=== PATIENT | male | born 1955 | race Caucasian/White ===

== ENCOUNTER 2025-01-08 11:13 | Inpatient (IN) | payer MEDICARE ==
[2025-01-08 12:42] LABS: ALT (SGPT) 32 U/L (Less than 45); AST (SGOT) 49 U/L (11-34); Albumin 4.5 g/dL (3.1-4.5); Alkaline Phosphatase 60 U/L (40-110); Anion Gap 15 mmol/L (10-20); BUN (Urea Nitrogen) 14 mg/dL (8.4-25.7); Bilirubin, Total 0.4 mg/dL (0.3-1.2); Calc. Creatinine Clearance 0 mL/min (70-130); Calcium 9.5 mg/dL (7.8-10.44); Carbon Dioxide 19 mmol/L (23-31); Chloride 108 mmol/L (98-107); Globulin 2.7 g/dL (2.4-3.5); Glucose 122 mg/dL (83-110); Potassium 4.5 mmol/L (3.5-5.1); Sodium 137 mmol/L (136-145)
[2025-01-08] MEDS ORDERED: Acetaminophen 500 MG TAB ONE (12:42)
[2025-01-08 13:00] LABS: #Basophils 0.05 10x3/uL (0.0-0.2); #Eosinophils 0.21 10x3/uL (0.0-0.7); #Monocytes 0.81 10x3/uL (0.11-0.59); #Neutrophils 6.10 10x3/uL (1.40-6.50); %Basophils 0.6 % (0.0-1.0); %Eosinophils 2.5 % (0.0-10.0); %Lymphocytes 15.2 % (21.0-51.0); %Monocytes 9.6 % (0.0-10.0); %Neutrophils 72.0 % (42.0-75.0); Hematocrit 45.8 % (42.0-52.0); Hemoglobin 15.3 g/dL (14.0-18.0); Mean Corpuscular Hemoglobin 31.2 pg (27.0-31.0); Mean Corpuscular Volume 93.3 fL (78.0-98.0); Platelet Count 187 10x3/uL (130-400); Red Blood Cell (RBC) Count 4.91 mill/uL (4.70-6.10); White Blood Cell (WBC) Count 8.47 10x3/uL (4.8-10.8)
[2025-01-08 15:50] VITALS: BMI 23.3
[2025-01-08] MEDS: Mupirocin 1 GM TUBE TP SCH (20:52)
[2025-01-09 03:52] LABS: #Basophils Less than 0.03 10x3/uL (0.0-0.2); #Eosinophils 0.15 10x3/uL (0.0-0.7); #Monocytes 0.70 10x3/uL (0.11-0.59); #Neutrophils 4.10 10x3/uL (1.40-6.50); %Basophils 0.3 % (0.0-1.0); %Eosinophils 2.3 % (0.0-10.0); %Lymphocytes 23.9 % (21.0-51.0); %Monocytes 10.7 % (0.0-10.0); %Neutrophils 62.6 % (42.0-75.0); Hematocrit 44.4 % (42.0-52.0); Hemoglobin 14.7 g/dL (14.0-18.0); Mean Corpuscular Hemoglobin 31.2 pg (27.0-31.0); Mean Corpuscular Volume 94.3 fL (78.0-98.0); Platelet Count 240 10x3/uL (130-400); Red Blood Cell (RBC) Count 4.71 mill/uL (4.70-6.10); White Blood Cell (WBC) Count 6.54 10x3/uL (4.8-10.8)
[2025-01-09 04:13] LABS: Anion Gap 11 mmol/L (10-20); BUN (Urea Nitrogen) 10 mg/dL (8.4-25.7); Calc. Creatinine Clearance 90 mL/min (70-130); Calcium 8.9 mg/dL (7.8-10.44); Carbon Dioxide 26 mmol/L (23-31); Chloride 109 mmol/L (98-107); Glucose 84 mg/dL (83-110); Potassium 4.2 mmol/L (3.5-5.1); Sodium 142 mmol/L (136-145)
[2025-01-09] MEDS ORDERED: Iopamidol 370 76% 100 ML VIAL ONE (09:26)
[2025-01-09] MEDS ORDERED: Adenosine 6 mg (2 mL) VIAL ONE (11:29)
[2025-01-09] MEDS ORDERED: EPINEPHrine 1 MG/10 ML Abboject SYRINGE ONE (11:30)
[2025-01-09] MEDS ORDERED: PHENYLEPHRINE-NS 100 MCG/ML 10 ML SYRINGE ONE (11:30)
[2025-01-09] MEDS ORDERED: Heparin 10,000 UNITS/ 10 ML VIAL ONE (11:30)
[2025-01-09] MEDS ORDERED: Nitroglycerin 50 MG/250 ML BOT 250 ML ONE (11:30)
[2025-01-09] MEDS ORDERED: Lidocaine 1% (PF) 30 ML VIAL ONE (11:39)
[2025-01-09] MEDS ORDERED: Nitroglycerin 0.4 MG TAB (25 Tab Bottle) SL PRN (14:11)
[2025-01-09] MEDS: Acetaminophen 325 MG TAB PO PRN (14:35)
[2025-01-09] MEDS: Ondansetron PF 4 MG/2 ML Vial IVP PRN (14:35)
[2025-01-09] MEDS ORDERED: Acetaminophen/Codeine 30-300mg Tablet PO PRN (15:29)
[2025-01-09] MEDS: Ondansetron PF 4 MG/2 ML Vial IVP SCH (22:19)
[2025-01-10 05:27] LABS: #Basophils 0.03 10x3/uL (0.0-0.2); #Eosinophils 0.09 10x3/uL (0.0-0.7); #Monocytes 0.91 10x3/uL (0.11-0.59); #Neutrophils 6.60 10x3/uL (1.40-6.50); %Basophils 0.3 % (0.0-1.0); %Eosinophils 1.0 % (0.0-10.0); %Lymphocytes 13.4 % (21.0-51.0); %Monocytes 10.3 % (0.0-10.0); %Neutrophils 74.7 % (42.0-75.0); Hematocrit 42.4 % (42.0-52.0); Hemoglobin 14.4 g/dL (14.0-18.0); Mean Corpuscular Hemoglobin 31.5 pg (27.0-31.0); Mean Corpuscular Volume 92.8 fL (78.0-98.0); Platelet Count 252 10x3/uL (130-400); Red Blood Cell (RBC) Count 4.57 mill/uL (4.70-6.10); White Blood Cell (WBC) Count 8.85 10x3/uL (4.8-10.8)
[2025-01-10 05:51] LABS: ALT (SGPT) 21 U/L (Less than 45); AST (SGOT) 24 U/L (11-34); Albumin 3.8 g/dL (3.1-4.5); Alkaline Phosphatase 55 U/L (40-110); Anion Gap 10 mmol/L (10-20); BUN (Urea Nitrogen) 7 mg/dL (8.4-25.7); Bilirubin, Total 0.5 mg/dL (0.3-1.2); Calc. Creatinine Clearance 111 mL/min (70-130); Calcium 8.7 mg/dL (7.8-10.44); Carbon Dioxide 26 mmol/L (23-31); Chloride 110 mmol/L (98-107); Globulin 2.1 g/dL (2.4-3.5); Glucose 91 mg/dL (83-110); Potassium 3.7 mmol/L (3.5-5.1); Sodium 142 mmol/L (136-145)
[2025-01-10] MEDS ORDERED: Lidocaine 1% (PF) 30 ML VIAL ONE (16:00)
[2025-01-10] MEDS ORDERED: Heparin 10,000 UNITS/ 10 ML VIAL ONE (16:00)
[2025-01-10] MEDS ORDERED: CEFAZOLIN 2 GM VIAL ONE (16:00)
[2025-01-10] MEDS ORDERED: Ondansetron PF 4 MG/2 ML Vial ONE (16:44)
[2025-01-10] MEDS ORDERED: Lidocaine 1% PF 5 ML VIAL ONE (16:51)
[2025-01-11] MEDS: Transdermal Patch Removal TOP SCH (01:47)
[2025-01-11 04:04] LABS: #Basophils 0.06 10x3/uL (0.0-0.2); #Eosinophils 0.28 10x3/uL (0.0-0.7); #Monocytes 1.07 10x3/uL (0.11-0.59); #Neutrophils 3.80 10x3/uL (1.40-6.50); %Basophils 0.8 % (0.0-1.0); %Eosinophils 3.9 % (0.0-10.0); %Lymphocytes 27.5 % (21.0-51.0); %Monocytes 14.8 % (0.0-10.0); %Neutrophils 52.7 % (42.0-75.0); Hematocrit 39.9 % (42.0-52.0); Hemoglobin 13.3 g/dL (14.0-18.0); Mean Corpuscular Hemoglobin 31.1 pg (27.0-31.0); Mean Corpuscular Volume 93.4 fL (78.0-98.0); Platelet Count 216 10x3/uL (130-400); Red Blood Cell (RBC) Count 4.27 mill/uL (4.70-6.10); White Blood Cell (WBC) Count 7.21 10x3/uL (4.8-10.8)
[2025-01-11 04:24] LABS: ALT (SGPT) 19 U/L (Less than 45); AST (SGOT) 21 U/L (11-34); Albumin 3.6 g/dL (3.1-4.5); Alkaline Phosphatase 53 U/L (40-110); Anion Gap 15 mmol/L (10-20); BUN (Urea Nitrogen) 12 mg/dL (8.4-25.7); Bilirubin, Total 0.4 mg/dL (0.3-1.2); Calc. Creatinine Clearance 82 mL/min (70-130); Calcium 8.7 mg/dL (7.8-10.44); Carbon Dioxide 25 mmol/L (23-31); Chloride 107 mmol/L (98-107); Globulin 2.0 g/dL (2.4-3.5); Glucose 86 mg/dL (83-110); Potassium 3.7 mmol/L (3.5-5.1); Sodium 143 mmol/L (136-145)
[2025-01-11] MEDS ORDERED: Lidocaine 1% (PF) 30 ML VIAL ONE (10:15)
[2025-01-11] MEDS ORDERED: Heparin 10,000 UNITS/ 10 ML VIAL ONE ×2 (10:15→12:42)
[2025-01-11] MEDS ORDERED: CEFAZOLIN 2 GM VIAL ONE (10:15)
[2025-01-11] MEDS ORDERED: Rocuronium Bromide 10 MG/ML (10ML VIAL) ONE (10:55)
[2025-01-11] MEDS ORDERED: Ondansetron PF 4 MG/2 ML Vial ONE (10:55)
[2025-01-11] MEDS ORDERED: PHENYLEPHRINE-NS 100 MCG/ML 10 ML SYRINGE ONE (10:56)
[2025-01-11] MEDS ORDERED: Iopamidol 370 76% 100 ML VIAL ONE (12:00)
[2025-01-11] MEDS ORDERED: PROPOFOL 200 MG/20 ML VIAL ONE (12:45)
[2025-01-11] MEDS ORDERED: Glycopyrrolate 0.2 MG/ML 5 ML SYRINGE ONE (12:45)
[2025-01-12 11:51] VITALS: TEMP 97.6
[2025-01-12 15:23] VITALS: BP 139/77
== END 2025-01-12 18:35 | disposition home or self-care (01) | DRG 229 ==
LOC: ERS 11:13 → ERHOLD 14:16 → CCU 15:14 → 2NO 01-10 20:14
PROVIDERS: ADMIT Internal Medicine; ATTEND Family Medicine
PROC: B2151ZZ Fluoroscopy of Left Heart using Low Osmolar Contrast (ICD-10-PCS; 2025-01-10)
PROC: B2101ZZ Fluoroscopy of Single Coronary Artery using Low Osmolar Contrast (ICD-10-PCS; 2025-01-10)
PROC: 4A023N7 Measurement of Cardiac Sampling and Pressure, Left Heart, Percutaneous Approach (ICD-10-PCS; 2025-01-10)
PROC: 3E03329 Introduction of Other Anti-infective into Peripheral Vein, Percutaneous Approach (ICD-10-PCS; 2025-01-10)
PROC: 3E033XZ Introduction of Vasopressor into Peripheral Vein, Percutaneous Approach (ICD-10-PCS; 2025-01-10)
PROC: 02HK3NZ Insertion of Intracardiac Pacemaker into Right Ventricle, Percutaneous Approach (ICD-10-PCS; principal; 2025-01-12)
DX: R00.1 Bradycardia, unspecified (principal); Z00.6 Encounter for examination for normal comparison and control in clinical research program; I48.91 Unspecified atrial fibrillation; N40.0 Benign prostatic hyperplasia without lower urinary tract symptoms; I25.10 Atherosclerotic heart disease of native coronary artery without angina pectoris; I49.3 Ventricular premature depolarization; Z88.5 Allergy status to narcotic agent; Z82.49 Family history of ischemic heart disease and other diseases of the circulatory system; R51.9 Headache, unspecified; R29.700 NIHSS score 0; Z95.0 Presence of cardiac pacemaker
CPT/HCPCS: 33274; 36415; 36416; 70450; 70496; 70498; 71045; 80048; 80053; 84484; 85025; 93005; 93306; 93458; 96365; 99152; 99153; C1760; C1769; C1786; C1887; C1894; J0153; J0165; J0461; J1100; J1265; J1644; J2003; J2250; J2405; J2550; J2704; J2765; J3010; J7030; Q9967

== ENCOUNTER 2025-01-12 20:48 | Emergency (ER) | payer MEDICARE ==
[2025-01-12 21:31] LABS: #Basophils 0.03 10x3/uL (0.0-0.2); #Eosinophils 0.18 10x3/uL (0.0-0.7); #Monocytes 0.77 10x3/uL (0.11-0.59); #Neutrophils 4.94 10x3/uL (1.40-6.50); %Basophils 0.4 % (0.0-1.0); %Eosinophils 2.3 % (0.0-10.0); %Lymphocytes 24.1 % (21.0-51.0); %Monocytes 9.9 % (0.0-10.0); %Neutrophils 63.2 % (42.0-75.0); Hematocrit 40.0 % (42.0-52.0); Hemoglobin 13.7 g/dL (14.0-18.0); Mean Corpuscular Hemoglobin 31.6 pg (27.0-31.0); Mean Corpuscular Volume 92.2 fL (78.0-98.0); Platelet Count 221 10x3/uL (130-400); Red Blood Cell (RBC) Count 4.34 mill/uL (4.70-6.10); White Blood Cell (WBC) Count 7.81 10x3/uL (4.8-10.8)
[2025-01-12] MEDS ORDERED: Metoclopramide HCl 10 MG (2 mL) VIAL ONE (21:38)
[2025-01-12 21:42] LABS: ALT (SGPT) 19 U/L (Less than 45); AST (SGOT) 26 U/L (11-34); Albumin 4.1 g/dL (3.1-4.5); Alkaline Phosphatase 56 U/L (40-110); Anion Gap 17 mmol/L (10-20); BUN (Urea Nitrogen) 15 mg/dL (8.4-25.7); Bilirubin, Total 0.3 mg/dL (0.3-1.2); Calc. Creatinine Clearance 0 mL/min (70-130); Calcium 9.1 mg/dL (7.8-10.44); Carbon Dioxide 25 mmol/L (23-31); Chloride 105 mmol/L (98-107); Globulin 2.3 g/dL (2.4-3.5); Glucose 109 mg/dL (83-110); Potassium 3.9 mmol/L (3.5-5.1); Sodium 143 mmol/L (136-145)
== END 2025-01-13 01:05 | disposition home or self-care (01) ==
LOC: ERS 20:48
DX: R51.9 Headache, unspecified (principal); R29.700 NIHSS score 0; Z95.0 Presence of cardiac pacemaker
CPT/HCPCS: 70496; 70498; 71045; 80053; 84484; 85025; J2765

== ENCOUNTER 2025-01-25 18:00 | Emergency (ER) | payer MEDICARE ==
[~2025-01-25 18:00] MED LIST: Iopamidol-370 76% 500 ML MDV (1 ML CHARGE) ONE
[2025-01-25 18:53] LABS: #Basophils 0.06 10x3/uL (0.0-0.2); #Eosinophils 0.24 10x3/uL (0.0-0.7); #Monocytes 0.65 10x3/uL (0.11-0.59); #Neutrophils 4.16 10x3/uL (1.40-6.50); %Basophils 0.9 % (0.0-1.0); %Eosinophils 3.6 % (0.0-10.0); %Lymphocytes 24.1 % (21.0-51.0); %Monocytes 9.6 % (0.0-10.0); %Neutrophils 61.7 % (42.0-75.0); Hematocrit 39.9 % (42.0-52.0); Hemoglobin 13.6 g/dL (14.0-18.0); Mean Corpuscular Hemoglobin 31.6 pg (27.0-31.0); Mean Corpuscular Volume 92.6 fL (78.0-98.0); Platelet Count 195 10x3/uL (130-400); Red Blood Cell (RBC) Count 4.31 mill/uL (4.70-6.10); White Blood Cell (WBC) Count 6.75 10x3/uL (4.8-10.8)
[2025-01-25] MEDS ORDERED: Ondansetron PF 4 MG/2 ML Vial ONE (19:04)
[2025-01-25 19:31] LABS: ALT (SGPT) 25 U/L (Less than 45); AST (SGOT) 48 U/L (11-34); Albumin 3.9 g/dL (3.1-4.5); Alkaline Phosphatase 53 U/L (40-110); Anion Gap 16 mmol/L (10-20); BUN (Urea Nitrogen) 14 mg/dL (8.4-25.7); Bilirubin, Total 0.3 mg/dL (0.3-1.2); Calc. Creatinine Clearance 0 mL/min (70-130); Calcium 8.6 mg/dL (7.8-10.44); Carbon Dioxide 19 mmol/L (23-31); Chloride 103 mmol/L (98-107); Globulin 2.4 g/dL (2.4-3.5); Glucose 119 mg/dL (83-110); Potassium 4.5 mmol/L (3.5-5.1); Sodium 133 mmol/L (136-145)
[2025-01-25] MEDS ORDERED: Metoclopramide HCl 10 MG (2 mL) VIAL ONE (19:53)
[2025-01-25] MEDS ORDERED: diphenhydrAMINE 50 MG/ML VIAL ONE (19:53)
[2025-01-25] MEDS ORDERED: Tenecteplase 50 MG ONE (20:28)
== END 2025-01-25 21:27 | disposition short-term general hospital (02) ==
LOC: ERS 18:00
DX: I66.3 Occlusion and stenosis of cerebellar arteries (principal); G45.0 Vertebro-basilar artery syndrome; R29.702 NIHSS score 2
CPT/HCPCS: 70450; 70496; 70498; 71045; 71275; 74174; 80053; 82962; 84484; 85025; 93005; J1200; J2270; J2405; J2765; 36416; 37195; 96365; 96375

== ENCOUNTER 2025-01-30 14:09 | Inpatient (IN) | payer MEDICARE ==
[2025-01-30 14:42] LABS: #Basophils 0.06 10x3/uL (0.0-0.2); #Eosinophils 0.12 10x3/uL (0.0-0.7); #Monocytes 0.49 10x3/uL (0.11-0.59); #Neutrophils 8.13 10x3/uL (1.40-6.50); %Basophils 0.6 % (0.0-1.0); %Eosinophils 1.2 % (0.0-10.0); %Lymphocytes 9.2 % (21.0-51.0); %Monocytes 5.0 % (0.0-10.0); %Neutrophils 83.6 % (42.0-75.0); Hematocrit 44.8 % (42.0-52.0); Hemoglobin 15.2 g/dL (14.0-18.0); Mean Corpuscular Hemoglobin 31.4 pg (27.0-31.0); Mean Corpuscular Volume 92.6 fL (78.0-98.0); Platelet Count 207 10x3/uL (130-400); Red Blood Cell (RBC) Count 4.84 mill/uL (4.70-6.10); White Blood Cell (WBC) Count 9.74 10x3/uL (4.8-10.8)
[2025-01-30 14:53] LABS: ALT (SGPT) 21 U/L (Less than 45); AST (SGOT) 25 U/L (11-34); Albumin 4.3 g/dL (3.1-4.5); Alkaline Phosphatase 71 U/L (40-110); Anion Gap 15 mmol/L (10-20); BUN (Urea Nitrogen) 13 mg/dL (8.4-25.7); Bilirubin, Total 0.4 mg/dL (0.3-1.2); Calc. Creatinine Clearance 0 mL/min (70-130); Calcium 9.5 mg/dL (7.8-10.44); Carbon Dioxide 24 mmol/L (23-31); Chloride 102 mmol/L (98-107); Globulin 2.6 g/dL (2.4-3.5); Glucose 204 mg/dL (83-110); Potassium 3.7 mmol/L (3.5-5.1); Sodium 137 mmol/L (136-145)
[2025-01-30] MEDS ORDERED: diphenhydrAMINE 50 MG/ML VIAL ONE (14:53)
[2025-01-30] MEDS ORDERED: Acetaminophen 500 MG TAB ONE (14:53)
[2025-01-30] MEDS ORDERED: Metoclopramide HCl 10 MG (2 mL) VIAL ONE (14:53)
[2025-01-30 22:14] VITALS: BMI 23.8
[2025-01-30] MEDS ORDERED: hydrALAZINE 20 MG/ML VIAL SLOW IVP PRN (22:50)
[2025-01-30] MEDS ORDERED: Bisacodyl 10 MG SUPP PR PRN (22:52)
[2025-01-30] MEDS ORDERED: Ondansetron PF 4 MG/2 ML Vial IVP PRN (22:52)
[2025-01-30] MEDS ORDERED: Guaifenesin DM 100-10/5 ML UDCUP PO PRN (22:52)
[2025-01-30] MEDS ORDERED: Melatonin 3 MG TAB PO PRN (22:52)
[2025-01-30] MEDS ORDERED: Senokot S 8.6-50 MG TAB PO PRN (22:52)
[2025-01-30] MEDS ORDERED: Acetaminophen 325 MG TAB PO PRN (22:52)
[2025-01-30] MEDS ORDERED: Electrolyte Replacement Protocol 1 EACH FS SCH (23:00)
[2025-01-30] MEDS ORDERED: Magnesium 2 GM/50 ML(in water) 2 GM in Premix 1 BAG IVPB PRN (23:30)
[2025-01-30] MEDS ORDERED: Potassium Chloride 20 MEQ in Premix 1 BAG IVPB PRN (23:30)
[2025-01-30] MEDS ORDERED: PHOS-NAK 1 PKT PACK PO PRN (23:30)
[2025-01-31 04:35] LABS: #Basophils 0.04 10x3/uL (0.0-0.2); #Eosinophils 0.27 10x3/uL (0.0-0.7); #Monocytes 0.94 10x3/uL (0.11-0.59); #Neutrophils 4.78 10x3/uL (1.40-6.50); %Basophils 0.5 % (0.0-1.0); %Eosinophils 3.5 % (0.0-10.0); %Lymphocytes 21.7 % (21.0-51.0); %Monocytes 12.2 % (0.0-10.0); %Neutrophils 62.0 % (42.0-75.0); Hematocrit 40.6 % (42.0-52.0); Hemoglobin 13.9 g/dL (14.0-18.0); Mean Corpuscular Hemoglobin 31.5 pg (27.0-31.0); Mean Corpuscular Volume 92.1 fL (78.0-98.0); Platelet Count 203 10x3/uL (130-400); Red Blood Cell (RBC) Count 4.41 mill/uL (4.70-6.10); White Blood Cell (WBC) Count 7.71 10x3/uL (4.8-10.8)
[2025-01-31 04:38] LABS: Anion Gap 15 mmol/L (10-20); BUN (Urea Nitrogen) 14 mg/dL (8.4-25.7); Calc. Creatinine Clearance 88 mL/min (70-130); Calcium 9.0 mg/dL (7.8-10.44); Carbon Dioxide 24 mmol/L (23-31); Cardiac Risk 2.8 (Less than 4.5); Chloride 109 mmol/L (98-107); Cholesterol 94 mg/dl (< 200 Desired); Glucose 106 mg/dL (83-110); HDL Cholesterol 33 mg/dL (>60 Neg Risk); LDL Cholesterol, Calculated 46 mg/dL; Potassium 3.6 mmol/L (3.5-5.1); Sodium 144 mmol/L (136-145); Triglycerides 74 mg/dL (Less than 150)
[2025-01-31] MEDS: Enoxaparin 40 MG (0.4 mL) SYRINGE SC SCH (08:43)
[2025-01-31] MEDS: Aspirin 81 mg Enteric Coated Tablet PO SCH (08:43)
[2025-02-01 11:12] VITALS: BP 132/81; TEMP 97.5
[2025-02-01] MEDS ORDERED: Rosuvastatin 20 MG TAB PO SCH (21:00)
== END 2025-02-01 16:57 | disposition home or self-care (01) | DRG 103 ==
LOC: ERS 14:09 → OBS 20:11 → OBSVTOIN 01-31 13:11
PROVIDERS: ADMIT Internal Medicine; ATTEND Family Medicine
DX: R51.9 Headache, unspecified (principal); I25.10 Atherosclerotic heart disease of native coronary artery without angina pectoris; I49.5 Sick sinus syndrome; Z86.73 Personal history of transient ischemic attack (TIA), and cerebral infarction without residual deficits; Z95.0 Presence of cardiac pacemaker; Z88.5 Allergy status to narcotic agent; Z88.8 Allergy status to other drugs, medicaments and biological substances; Z98.890 Other specified postprocedural states; Z79.899 Other long term (current) drug therapy
CPT/HCPCS: 36415; 70450; 70496; 70498; 71045; 80048; 80053; 80061; 83036; 84484; 85025; 86141; 93005; 94760; 96365; 96372; 96375; G0378; J1200; J1650; J2765

== ENCOUNTER 2025-02-15 15:17 | Observation (INO) | payer MEDICARE ==
[2025-02-15 16:22] LABS: #Basophils 0.03 10x3/uL (0.0-0.2); #Eosinophils 0.26 10x3/uL (0.0-0.7); #Monocytes 0.70 10x3/uL (0.11-0.59); #Neutrophils 6.23 10x3/uL (1.40-6.50); %Basophils 0.4 % (0.0-1.0); %Eosinophils 3.1 % (0.0-10.0); %Lymphocytes 14.7 % (21.0-51.0); %Monocytes 8.2 % (0.0-10.0); %Neutrophils 73.2 % (42.0-75.0); Hematocrit 42.9 % (42.0-52.0); Hemoglobin 15.4 g/dL (14.0-18.0); Mean Corpuscular Hemoglobin 32.0 pg (27.0-31.0); Mean Corpuscular Volume 89.2 fL (78.0-98.0); Platelet Count 210 10x3/uL (130-400); Red Blood Cell (RBC) Count 4.81 mill/uL (4.70-6.10); White Blood Cell (WBC) Count 8.50 10x3/uL (4.8-10.8)
[2025-02-15] MEDS ORDERED: diphenhydrAMINE 50 MG/ML VIAL ONE (16:24)
[2025-02-15] MEDS ORDERED: Metoclopramide HCl 10 MG (2 mL) VIAL ONE (16:24)
[2025-02-15 16:35] LABS: ALT (SGPT) 30 U/L (Less than 45); AST (SGOT) 28 U/L (11-34); Albumin 4.4 g/dL (3.1-4.5); Alkaline Phosphatase 56 U/L (40-110); Anion Gap 14 mmol/L (10-20); BUN (Urea Nitrogen) 10 mg/dL (8.4-25.7); Bilirubin, Total 0.3 mg/dL (0.3-1.2); Calc. Creatinine Clearance 0 mL/min (70-130); Calcium 9.2 mg/dL (7.8-10.44); Carbon Dioxide 22 mmol/L (23-31); Chloride 107 mmol/L (98-107); Globulin 2.2 g/dL (2.4-3.5); Glucose 101 mg/dL (83-110); Potassium 3.7 mmol/L (3.5-5.1); Sodium 139 mmol/L (136-145)
[2025-02-15 16:40] LABS: INR-International Normal Ratio 1.0; PTT 29.0 sec (22.9-36.1); Prothrombin Time 13.7 sec (12.0-14.7)
[2025-02-15] MEDS ORDERED: Ondansetron PF 4 MG/2 ML Vial IVP PRN (19:03)
[2025-02-15] MEDS ORDERED: Fioricet 325/50/40 mg Tablet PO PRN (19:03)
[2025-02-15] MEDS ORDERED: Acetaminophen 325 MG TAB PO PRN (19:03)
[2025-02-15] MEDS: Rosuvastatin 20 MG TAB PO SCH (22:57)
[2025-02-16 04:28] LABS: #Basophils 0.06 10x3/uL (0.0-0.2); #Eosinophils 0.25 10x3/uL (0.0-0.7); #Monocytes 0.98 10x3/uL (0.11-0.59); #Neutrophils 6.06 10x3/uL (1.40-6.50); %Basophils 0.7 % (0.0-1.0); %Eosinophils 2.9 % (0.0-10.0); %Lymphocytes 14.1 % (21.0-51.0); %Monocytes 11.4 % (0.0-10.0); %Neutrophils 70.7 % (42.0-75.0); Hematocrit 42.3 % (42.0-52.0); Hemoglobin 14.0 g/dL (14.0-18.0); Mean Corpuscular Hemoglobin 31.5 pg (27.0-31.0); Mean Corpuscular Volume 95.1 fL (78.0-98.0); Platelet Count 206 10x3/uL (130-400); Red Blood Cell (RBC) Count 4.45 mill/uL (4.70-6.10); White Blood Cell (WBC) Count 8.58 10x3/uL (4.8-10.8)
[2025-02-16 04:47] VITALS: BMI 23.5
[2025-02-16 04:47] LABS: Anion Gap 9 mmol/L (10-20); BUN (Urea Nitrogen) 13 mg/dL (8.4-25.7); Calc. Creatinine Clearance 0 mL/min (70-130); Calcium 8.7 mg/dL (7.8-10.44); Carbon Dioxide 26 mmol/L (23-31); Chloride 109 mmol/L (98-107); Glucose 90 mg/dL (83-110); Potassium 3.7 mmol/L (3.5-5.1); Sodium 140 mmol/L (136-145)
[2025-02-16] MEDS: Verapamil 180 MG ER.TAB PO SCH (10:18)
[2025-02-16] MEDS: Aspirin 81 mg Enteric Coated Tablet PO SCH (10:18)
[2025-02-16 11:25] VITALS: TEMP 97.7
[2025-02-16 13:02] VITALS: BP 117/63
== END 2025-02-16 15:57 | disposition home or self-care (01) ==
LOC: ERS 15:17 → ERHOLD 18:24 → 2SE 18:40
PROVIDERS: ADMIT Internal Medicine; ATTEND Internal Medicine
DX: R51.9 Headache, unspecified (principal); R20.2 Paresthesia of skin; I25.10 Atherosclerotic heart disease of native coronary artery without angina pectoris; H91.91 Unspecified hearing loss, right ear; E78.5 Hyperlipidemia, unspecified; N40.0 Benign prostatic hyperplasia without lower urinary tract symptoms; Z95.0 Presence of cardiac pacemaker; Z86.73 Personal history of transient ischemic attack (TIA), and cerebral infarction without residual deficits; Z90.89 Acquired absence of other organs; Z88.5 Allergy status to narcotic agent; Z79.02 Long term (current) use of antithrombotics/antiplatelets; Z79.82 Long term (current) use of aspirin; Z79.899 Other long term (current) drug therapy
CPT/HCPCS: 70450; 70496; 70498; 70544; 70551; 76014; 80048; 80053; 82962 ×2; 85025 ×2; 85610; 85730; 93005; 96365; 96366; 96375; 96376; 99285; G0378 ×3; J1200; J2765; Q9967; 36415; 36416